=== PATIENT | male | born 1955 | race Two or more races ===

== ENCOUNTER 2022-05-16 06:34 | Emergency (ER) | payer MEDICAID, OTHER ==
[~2022-05-16] VITALS: Ht 172.7 cm; Wt 78.5 kg
[2022-05-16 07:34] VITALS: BP 138/71
[2022-05-16 08:09] LABS: Basophils # (auto) 0.1 10 ^3/uL (0-0.2); Basophils % (auto) 0.5 % (0.0-2.0); Eosinophils # (auto) 0.2 10 ^3/uL (0-0.8); Eosinophils % (auto) 1.8 % (0.0-7.0); Hematocrit 42.5 % (41.0-53.0); Hemoglobin 14.5 g/dL (13.5-17.5); Lymphocytes # (auto) 2.7 10 ^3/uL (0.4-5.4); Lymphocytes % (auto) 25.9 % (10.0-50.0); Mean Corpuscular Hemoglobin 31.1 pg (28.0-32.0); Mean Corpuscular Hgb Conc. 34.1 g/dL (32.0-36.0); Mean Corpuscular Volume 91.3 fL (80.0-100.0); Monocytes # (auto) 0.9 10 ^3/uL (0-1.3); Monocytes % (auto) 8.2 % (0.0-12.0); Neutrophils # (auto) 6.7 10 ^3/uL (1.6-8.6); Neutrophils % (auto) 63.6 % (37.0-80.0); Red Blood Cells 4.66 10^6/uL (4.5-5.90); Red Cell Distribution Width 14.3 % (11.8-14.3); White Blood Cell 10.6 10^3/uL (4.4-10.8)
[2022-05-16 08:39] LABS: Potassium 4.1 mmol/L (3.5-5.1)
[2022-05-16 08:43] LABS: BUN/Creatinine Ratio 12.4 (10.0-20.0); Calcium 8.7 mg/dL (8.5-10.1); Uric Acid 4.4 mg/dL (3.5-7.2)
[2022-05-16] MEDS ORDERED: KETOROLAC TROMETH 60MG/2ML VIAL IM ONE (09:15)
[2022-05-16] MEDS ORDERED: MELO7.5T9 PO (09:20)
== END 2022-05-16 09:34 | disposition home or self-care (01) ==
LOC: ER 06:34
DX: M25.542 Pain in joints of left hand (principal); M25.541 Pain in joints of right hand
CPT/HCPCS: 36415; 73120; 80048; 84550; 85025; 96372; 99284; J1885